=== PATIENT | male | born 1985 | race Caucasian/White ===

== ENCOUNTER 2017-01-14 05:47 | Emergency (ER) | payer OTHER ==
--- NOTE | ~2017-01-14 | CT4 ---
[facility] A Service [facility] RADIOLOGY TEXT RESULTS PATIENT: FREDA PAGE LOCATION: SED : [birth year] UNIT #: [id number] AGE: [address]: Dinesh Ho MD SEX: M ORDER DR: [id number] [place] [id number] E MR#: [id number] Acc #: [id number] NAME: FREDA PAGE : 1985 SEX: M STUDY DATE/TIME: 01/14/2017 5:58 UNIT: SED ROOM: STUDY DESCRIPTION: CT Abd and Pelv Wo Cont Attending Physician: Dinesh Ho M.D. Ordering Physician: Dwaine Escalante M.D. Primary Care Physician: Kirby Corea M.D. MEDICAL IMAGING REPORT This report is preliminary unless electronic signature is present. EXAM CT scan of the abdomen and pelvis without contrast 01/14/2017 HISTORY Left flank pain for 1 week. Evaluate for obstructing renal calculus. TECHNIQUE Spiral CT was performed through the abdomen and pelvis without oral or intravenous contrast administration using renal stone protocol. The CT exam was performed with one or more of the following radiation dose reduction techniques: automatic exposure control, adjustment of mA and/or kV according to patient size, and iterative reconstruction. FINDINGS Abdomen: There is moderate left hydronephrosis and hydroureter due to an 8 mm obstructing stone at the left ureterovesical junction. Inflammatory stranding is seen in the left perinephric and periureteral fat. There are nonobstructing renal stones bilaterally. The liver, spleen, pancreas, gallbladder and biliary tree and adrenal glands are normal. Pelvis findings: The gut, mesenteric and rocael structures are normal. There is no free fluid in the abdomen or pelvis. The lung bases are normal. IMPRESSION 1. Moderate left hydronephrosis and hydroureter due to an 8 mm obstructing stone at the left ureterovesical junction. 2. Nonobstructing renal stones bilaterally. Dictated by... [facility] A Service [facility] RADIOLOGY TEXT RESULTS PATIENT: FREDA PAGE [place] [facility] [place] [birth year] UNIT #: [id number] AGE: [address]: Dinesh Ho MD SEX: M ORDER DR: Yanick Sloan M.D. THIS IS AN ELECTRONICALLY VERIFIED REPORT Yanick Sloan M.D. at 01/15/2017 2:23 PM KRT/tai TD: 01/14/2017 11:05 JOB #: [id number] MEDICAL IMAGING REPORT
[~2017-01-14 05:47] MED LIST: FLEXERIL10 M1 PO; MEDROL DOSEPAK4 MG DOB; NAPROSYN-EC500 M1 DOB; NO MEDICATIONS; OXYCODONE; OXYCONTIN PO
[2017-01-14 06:10] LABS: BASOPHIL% 0.5 % (0-2.5); EOSINOPHIL# 0.2 X10e3 (0-0.7); EOSINOPHIL% 2.2 % (0.0-7.0); HEMATOCRIT 45.4 % (38.0-50.0); LYMPHOCYTE% 24.8 % (17.0-45.0); MEAN CELL VOLUME 84.4 FL (83-96); MEAN CORPUSCULAR HEMOGLOBIN 29.7 PG (28-34); MEAN CORPUSCULAR HGB CONC 35.2 g/dL (30-36); MEAN PLATELET VOLUME 8.9 FL (6.5-11.5); MONOCYTE# 0.9 X10e3 (0-1.0); MONOCYTE% 11.1 % (3.0-12.0); NEUTROPHIL% 61.4 % (40-75); PLATELET COUNT 269 X10e3 (140-420); RED BLOOD COUNT 5.38 X10e (3.90-5.60); RED CELL DISTRIBUTION WIDTH 13.4 % (11.0-15.5); WHITE BLOOD COUNT 8.2 X10e3 (4.0-10.5)
[2017-01-14 06:11] LABS: DIFF IND NO
[2017-01-14 06:25] LABS: BLOOD UREA NITROGEN 14 mg/dL (9-23); CALCIUM SERUM 9.9 mg/dL (8.4-10.2); CARBON DIOXIDE 28 mmol/L (22-31); CHLORIDE 102 mmol/L (100-111); GLOM FILT RATE Estimated ABOVE60 mL/min (>60); GLUCOSE FASTING 97 mg/dL (70-110); POTASSIUM 3.6 mmol/L (3.5-5.1); SODIUM 139 mmol/L (135-145)
[2017-01-14 06:57] LABS: URINE SOURCE CLEAN CATCH
[2017-01-14 06:59] LABS: URINE APPEARANCE CLEAR; URINE BILIRUBIN NEG (NEG); URINE BLOOD 3+ (NEG); URINE COLOR YELLOW; URINE GLUCOSE NEG (NORM); URINE KETONE NEG (NEG); URINE LEUKOCYTE ESTERASE TRACE (NEG); URINE NITRATE NEG (NEG); URINE PROTEIN 1+ (NEG)
[2017-01-14 07:04] LABS: MICRO INDICATED? YES
[2017-01-14 07:06] LABS: CULTURE INDICATED? NO; URINE BACTERIA NEG (NEG); URINE RBC 25-50 /[HPF] (0-2); URINE SQUAMOUS EPITHELIAL CELL FEW /[HPF]; URINE WBC 0-2 /[HPF] (0-5)
== END 2017-01-14 08:28 | disposition home or self-care (01) ==
LOC: SED 05:47
PROVIDERS: Emergency Medicine
DX: N13.2 Hydronephrosis with renal and ureteral calculous obstruction (principal); Z90.49 Acquired absence of other specified parts of digestive tract
CPT/HCPCS: 74176; 80048; 81003; 85025; 96374; 99284; J1885

== ENCOUNTER 2017-03-30 17:31 | Emergency (ER) | payer OTHER ==
--- NOTE | ~2017-03-30 | EKG ---
PATIENT: FREDA PAGE UNIT #: [id number] Ventricular Rate: 96 BPM Atrial Rate: 96 BPM P-R Interval: 138 ms QRS Duration: 88 ms Q-T Interval: 350 ms QTC Calculation(Bezet): 442 ms P [place]: 70 degrees Calculated R [place]: 82 degrees Calculated T [place]: 63 degrees Diagnosis Line: Normal sinus rhythm with sinus arrhythmia Diagnosis Line: Normal ECG Diagnosis Line: No previous ECGs available Diagnosis Line: Confirmed by MARCO SOLOMON MD ([id number]) on Diagnosis Line: 04/02/2017 8:50:39 AM INTERPRETING MD: NEHA FORRESTER
--- NOTE | ~2017-03-30 | CR63 ---
[facility] A Service of [facility] RADIOLOGY TEXT RESULTS PATIENT: FREDA PAGE LOCATION: SED : [birth year] UNIT #: [id number] AGE: [address]: BRADEN ANAND SEX: M ORDER DR: [id number] [place] [id number] E MR#: [id number] Acc #: [id number] NAME: FREDA PAGE : 1985 SEX: M STUDY DATE/TIME: 03/30/2017 18:31 UNIT: SED ROOM: STUDY DESCRIPTION: CR Chest 2 View Attending Physician: Braden Anand Ordering Physician: Physician Non-Staff Primary Care Physician: Kirby Corea M.D. MEDICAL IMAGING REPORT This report is preliminary unless electronic signature is present. EXAM PA and lateral chest HISTORY Chest pain for 1 week. FINDINGS 2 views of the chest demonstrate cardiac size and pulmonary vascularity are normal. No infiltrates or effusions are identified. The lateral left costophrenic sulcus is partly excluded on the PA view. Mild pleural thickening in the lung apices. IMPRESSION No acute findings. Dictated by... Otto Sheridan M.D. THIS IS AN ELECTRONICALLY VERIFIED REPORT Otto Sheridan M.D. at 03/30/2017 10:25 PM JULY/astrid TD: 03/30/2017 21:37 JOB #: [id number] MEDICAL IMAGING REPORT Page 1 of 1
[2017-03-30 18:40] LABS: PROTHROMBIN TIME (PATIENT) 11.6 SECONDS (9.5-12.4)
[2017-03-30 18:43] LABS: BASOPHIL% 0.3 % (0-2.5); DIFF IND NO; EOSINOPHIL# 0.1 X10e3 (0-0.7); EOSINOPHIL% 1.7 % (0.0-7.0); HEMATOCRIT 45.5 % (38.0-50.0); HEMOGLOBIN 16.1 gm/dL (13.0-16.0); LYMPHOCYTE# 2.1 X10e3 (1.0-3.5); LYMPHOCYTE% 25.3 % (17.0-45.0); MEAN CELL VOLUME 84.8 FL (83-96); MEAN CORPUSCULAR HEMOGLOBIN 30.1 PG (28-34); MEAN CORPUSCULAR HGB CONC 35.5 g/dL (30-36); MEAN PLATELET VOLUME 9.6 FL (6.5-11.5); MONOCYTE# 0.7 X10e3 (0-1.0); MONOCYTE% 8.8 % (3.0-12.0); NEUTROPHIL# 5.2 X10e3 (1.5-7.1); NEUTROPHIL% 63.9 % (40-75); PLATELET COUNT 275 X10e3 (140-420); RED BLOOD COUNT 5.36 X10e (3.90-5.60); RED CELL DISTRIBUTION WIDTH 13.3 % (11.0-15.5); WHITE BLOOD COUNT 8.2 X10e3 (4.0-10.5)
[2017-03-30 18:48] LABS: PARTIAL THROMBOPLASTIN TIME 29.1 SECONDS (25.6-38.1)
[2017-03-30 18:49] LABS: ALKALINE PHOSPHATASE 99 U/L (32-92); ALT (SGPT) 27 U/L (10-40); AST (SGOT) 25 U/L (10-42); BILIRUBIN,TOTAL 0.5 mg/dL (0.2-2.0); BLOOD UREA NITROGEN 14 mg/dL (9-23); CALCIUM SERUM 9.5 mg/dL (8.4-10.2); CARBON DIOXIDE 25 mmol/L (22-31); CHLORIDE 104 mmol/L (100-111); GLOM FILT RATE Estimated 99.2 mL/min (>60); GLUCOSE FASTING 109 mg/dL (70-110); POTASSIUM 3.9 mmol/L (3.5-5.1); PROTEIN TOTAL SERUM 7.8 g/dL (6.0-8.3); SODIUM 140 mmol/L (135-145)
[2017-03-30 18:50] LABS: POC - CKMB <1.0 ng/mL (0.0-7.9)
[2017-03-30 18:51] LABS: POC - TROPONIN <0.05 ng/mL (<=0.05)
[2017-03-30 18:54] LABS: BILIRUBIN, DIRECT <0.1 mg/dL (0.0-0.2); BILIRUBIN,INDIRECT 0.4 mg/dL (0.0-0.9)
== END 2017-03-30 19:42 | disposition home or self-care (01) ==
LOC: SED 17:31
PROVIDERS: Physician Assistant
DX: R07.89 Other chest pain (principal); F17.200 Nicotine dependence, unspecified, uncomplicated
CPT/HCPCS: 36415; 71020; 80048; 80076; 82553; 84484; 85025; 85610; 85730; 93005; 99284